=== PATIENT | female | born 1985 | race Caucasian/White ===

== ENCOUNTER 2018-10-01 18:19 | Emergency (ER) | payer BC ==
[~2018-10-01] VITALS: Ht 165.1 cm; Wt 65.8 kg
[~2018-10-01 18:19] MED LIST: ANTIVERT25 MG PO; ATIVAN1 MG PO; AUGMENTIN 875875 MG PO; FLONASE 0.05%50 MCG NASAL; LEVOTHYROXINE 0.1 MG PO; ZYRTEC10 MG PO
[2018-10-01] MEDS ORDERED: PROTONIX40 M1 PO (18:36)
[2018-10-01 19:23] LABS: ABSOLUTE LYMPHOCYTES 2.5 thou/uL (0.8-5.3); ABSOLUTE MONOCYTES 0.6 thou/uL (0.0-1.2); BASOPHILS 0.5 %; EOSINOPHILS 0.5 %; HEMOGLOBIN 13.3 gm/dL (12.0-15.0); LYMPHOCYTES 27.1 %; MCH 31.2 pg (26.0-34.0); MCHC 33.2 g/dL (28.0-37.0); MCV 93.9 fL (80.0-100.0); MONOCYTES 6.7 %; MPV 10.4 fl. (7.2-11.1); NUCLEATED RBCS 0 /100WBC; PLATELET COUNT* 178 thou/uL (150-400); POLYS 65.2 %; RBC 4.26 mil/uL (4.20-5.00); WBC 9.2 thou/uL (4.0-11.0)
[2018-10-01 19:26] LABS: CALCIUM 8.7 mg/dL (8.5-10.1); CREATININE 1.1 mg/dL (0.6-1.3); POTASSIUM 3.4 mmol/L (3.5-5.1)
[2018-10-01 19:31] LABS: ALBUMIN 4.6 g/dL (3.4-5.0); TOTAL PROTEIN 7.7 g/dL (6.4-8.2)
[2018-10-01] MEDS ORDERED: CARAFATE1 GM/10 ML PO (20:25)
[2018-10-01] MEDS ORDERED: ONDANSETRON HCL4 M2 PO (20:25)
[2018-10-01 20:41] LABS: URINE BILIRUBIN NEGATIVE (Negative); URINE BLOOD TRACE (Negative); URINE CLARITY CLEAR; URINE COLOR YELLOW; URINE GLUCOSE-RANDOM NEGATIVE (Negative); URINE KETONES 1+ (Negative); URINE LEUKOCYTES-REFLEX NEGATIVE (Negative); URINE NITRITE-REFLEX NEGATIVE (Negative); URINE PROTEIN NEGATIVE (Negative); URINE SPECIFIC GRAVITY <= 1.005 (1.005-1.030); URINE UROBILINOGEN 0.2 E.U./dl (0.2-1.0)
[2018-10-01 21:48] VITALS: BP 162/90
== END 2018-10-01 21:49 | disposition home or self-care (01) ==
LOC: M.ERS 18:19
PROVIDERS: Nurse Practitioner Family
DX: K44.9 Diaphragmatic hernia without obstruction or gangrene (principal); R10.13 Epigastric pain; F41.9 Anxiety disorder, unspecified; E89.0 Postprocedural hypothyroidism; Z88.6 Allergy status to analgesic agent; Z90.49 Acquired absence of other specified parts of digestive tract; Z98.890 Other specified postprocedural states

== ENCOUNTER 2021-05-10 08:44 | Emergency (ER) | payer OTHER ==
[~2021-05-10] VITALS: Ht 167.6 cm; Wt 63.5 kg
[~2021-05-10 08:44] MED LIST changes: +CARAFATE1 GM/10 ML PO; +ONDANSETRON HCL4 M2 PO; +PROTONIX40 M1 PO
[2021-05-10 13:55] VITALS: BP 151/85
== END 2021-05-10 13:56 | disposition home or self-care (01) ==
LOC: M.ERS 08:44
DX: R04.0 Epistaxis (principal)